=== PATIENT | male | born 1975 | race Caucasian/White ===

== ENCOUNTER 2017-08-27 16:44 | Emergency (ER) | payer MEDICAID, OTHER ==
[2017-08-27] MEDS: DIPHTH/TET/ACEL PERTUSS (ADULT) 0.5 ML VIAL IM* (17:36)
[2017-08-27] MEDS: LIDOCAINE 1% (MDV) 10 ML INJ INJ (17:39)
== END 2017-08-27 18:40 | disposition home or self-care (01) ==
LOC: FTE 18:40
DX: S51.012A Laceration without foreign body of left elbow, initial encounter (principal); R07.9 Chest pain, unspecified; V49.40XA Driver injured in collision with unspecified motor vehicles in traffic accident, initial encounter
CPT/HCPCS: 12001; 71045; 73080-LT; 90471; 90715; 99284-25

== ENCOUNTER 2017-09-02 12:53 | Emergency (ER) | payer MEDICAID | END 2017-09-02 13:09 | disposition home or self-care (01) | LOC: E/R 13:09 | DX: Z48.02 Encounter for removal of sutures (principal) | CPT/HCPCS: 99281; Z7502 ==